=== PATIENT | female | born 1945 | race Caucasian/White ===

== ENCOUNTER 2021-02-02 17:24 | Emergency (ER) | payer MEDICARE, MEDICAID ==
[2021-02-02] MEDS ORDERED: Acetaminophen/Codeine 30-300mg Tablet ONE (18:14)
== END 2021-02-02 18:46 | disposition home or self-care (01) ==
LOC: BURERS 17:24
DX: L03.114 Cellulitis of left upper limb (principal); M19.90 Unspecified osteoarthritis, unspecified site; G20 Parkinson's disease; E03.9 Hypothyroidism, unspecified; E11.40 Type 2 diabetes mellitus with diabetic neuropathy, unspecified

== ENCOUNTER 2021-12-18 16:04 | Inpatient (IN) | payer MEDICARE, MEDICAID ==
[2021-12-18 17:19] LABS: ALT (SGPT) 55 U/L (8-55); AST (SGOT) 68 U/L (5-34); Albumin 3.8 g/dL (3.4-4.8); Alkaline Phosphatase 162 U/L (40-110); Anion Gap 15 mmol/L (10-20); BUN (Urea Nitrogen) 17 mg/dL (9.8-20.1); Bilirubin, Total 0.4 mg/dL (0.2-1.2); Calc. Creatinine Clearance 0 mL/min (70-130); Calcium 9.4 mg/dL (7.8-10.44); Carbon Dioxide 28 mmol/L (23-31); Chloride 100 mmol/L (98-107); Estimated GFR 69; Glucose 163 mg/dL (83-110); Potassium 4.1 mmol/L (3.5-5.1); Protein, Total 6.8 g/dL (5.8-8.1); Sodium 139 mmol/L (136-145)
[2021-12-18 17:22] LABS: #Basophils 0.1 thou/uL (0.0-0.2); #Eosinphils 0.2 thou/uL (0.0-0.7); #Monocytes 0.3 thou/uL (0.11-0.59); #Neutrophils 5.2 thou/uL (1.40-6.50); %Basophils 0.7 % (0.0-1.0); %Eosinophils 2.6 % (0.0-10.0); %Lymphocytes 26.1 % (21.0-51.0); %Monocytes 4.2 % (0.0-10.0); %Neutrophils 66.3 % (42.0-75.0); Hemoglobin 14.5 g/dL (12.0-16.0); Mean Corpuscular HGB CONC 31.9 g/dL (32.0-36.0); Mean Corpuscular Hemoglobin 27.1 pg (27.0-31.0); Mean Corpuscular Volume 84.8 fL (78.0-98.0); Mean Platelet Volume 7.8 fL (7.4-10.4); Platelet Count 221 thou/uL (130-400); RBC Distribution Width 15.5 % (11.5-14.5); Red Blood Cell (RBC) Count 5.34 mill/uL (4.20-5.40); White Blood Cell (WBC) Count 7.8 thou/uL (4.8-10.8)
[2021-12-18] MEDS ORDERED: Albuterol Sulfate 2.5 mg/0.5 ml Neb ONE ×2 (17:25→17:31)
[2021-12-18 18:16] LABS: Bilirubin Negative (Negative); Blood, Urine Negative (Negative); Clarity Clear (Clear); Glucose, Urine (Dipstick) Negative (Negative); Ketone, Urine Negative (Negative); Leukocyte Trace (Negative); Nitrite Negative (Negative); Protein, Urine (Dipstick) Negative (Neg-Trace); Urobilinogen 0.2 mg/dL (Less than 2); pH, Urine 6.5 (5.0-9.0)
[2021-12-18 18:25] LABS: Bacteria/HPF Rare-Few HPF (None Seen); RBC/HPF 0-3 HPF (0-3); Squamous Epithelial 0-3 HPF (0-3); WBC/HPF 0-3 HPF (0-3)
[2021-12-18 19:37] LABS: SARS-CoV-2 NAA Rapid Test DETECTED (NotDetected)
[2021-12-18 21:34] VITALS: BMI 43.4
[2021-12-18] MEDS ORDERED: Sodium Chloride 0.9% 1,000 ML IV SCH (22:30)
[2021-12-18] MEDS ORDERED: Ondansetron PF 4 MG/2 ML Vial IVP PRN (22:30)
[2021-12-18] MEDS ORDERED: Ondansetron ODT 4 MG TAB SL PRN (22:30)
[2021-12-18] MEDS ORDERED: Acetaminophen 325 MG TAB PO PRN (22:30)
[2021-12-19] MEDS ORDERED: Dextrose 5% in Water 1,000 ML IV PRN ×2 (08:55→19:30)
[2021-12-19] MEDS ORDERED: Dextrose 50% Abboject 50 ML SYRINGE SLOW IVP PRN ×2 (08:55→19:30)
[2021-12-19] MEDS ORDERED: CLONAZEPAM 1 MG PO SCH (09:00)
[2021-12-19] MEDS ORDERED: Carbidopa/Levodopa CR 50-200 mg Tablet PO SCH (09:00)
[2021-12-19] MEDS ORDERED: Non-Formulary Item 1 EACH (Buspirone Hcl [Buspar] 15 MG Tab) PO SCH (09:00)
[2021-12-19] MEDS: Lantus 1000 UNITS/10 ML VIAL SC SCH ×2 (10:00→21:55)
[2021-12-19] MEDS: HumaLOG 300 UNITS/3 ML VIAL SC SCH ×3 (10:01→22:02)
[2021-12-19] MEDS: lamoTRIgine 25 MG TAB PO SCH (10:03)
[2021-12-19] MEDS: Doxepin HCl 25 MG CAP PO SCH ×2 (10:04→10:11)
[2021-12-19] MEDS: Hydrochlorothiazide 25 MG TAB PO SCH (10:06)
[2021-12-19] MEDS: busPIRone HCl 5 MG TAB PO PRN ×2 (10:07→22:08)
[2021-12-19] MEDS ORDERED: Insulin Regular 300 UNITS/3 ML VIAL SC PRN (19:30)
[2021-12-19] MEDS: clonazePAM 0.5 MG TAB PO PRN (22:09)
[2021-12-20] MEDS: Doxepin HCl 25 MG CAP PO PRN ×2 (02:21→22:54)
[2021-12-20 05:42] LABS: Anion Gap 14 mmol/L (10-20); BUN (Urea Nitrogen) 10 mg/dL (9.8-20.1); Calc. Creatinine Clearance 117 mL/min (70-130); Calcium 8.9 mg/dL (7.8-10.44); Carbon Dioxide 31 mmol/L (23-31); Chloride 99 mmol/L (98-107); Estimated GFR 83; Glucose 126 mg/dL (83-110); Potassium 3.7 mmol/L (3.5-5.1); Sodium 140 mmol/L (136-145)
[2021-12-20 05:52] LABS: #Basophils 0.1 thou/uL (0.0-0.2); #Eosinphils 0.1 thou/uL (0.0-0.7); #Lymphocytes 1.1 thou/uL (1.20-3.40); #Monocytes 0.5 thou/uL (0.11-0.59); #Neutrophils 7.4 thou/uL (1.40-6.50); %Eosinophils 0.7 % (0.0-10.0); %Lymphocytes 11.9 % (21.0-51.0); %Monocytes 5.3 % (0.0-10.0); %Neutrophils 81.2 % (42.0-75.0); Hemoglobin 13.5 g/dL (12.0-16.0); Mean Corpuscular HGB CONC 32.2 g/dL (32.0-36.0); Mean Corpuscular Hemoglobin 27.5 pg (27.0-31.0); Mean Corpuscular Volume 85.4 fL (78.0-98.0); Mean Platelet Volume 8.1 fL (7.4-10.4); Platelet Count 187 thou/uL (130-400); RBC Distribution Width 15.4 % (11.5-14.5); White Blood Cell (WBC) Count 9.1 thou/uL (4.8-10.8)
[2021-12-20] MEDS: Levothyroxine Sodium 50 MCG TAB PO SCH (06:04)
[2021-12-20] MEDS: Linaclotide [Linzess] 145 MCG Capsule PO SCH (08:08)
[2021-12-20] MEDS: Lantus 1000 UNITS/10 ML VIAL SC SCH ×2 (08:11→21:25)
[2021-12-20] MEDS: lamoTRIgine 25 MG TAB PO SCH (08:12)
[2021-12-20] MEDS: HumaLOG 300 UNITS/3 ML VIAL SC SCH ×3 (08:12→21:24)
[2021-12-20] MEDS: HumaLOG 300 UNITS/3 ML VIAL SC PRN ×2 (08:12→17:51)
[2021-12-20] MEDS: busPIRone HCl 5 MG TAB PO PRN ×2 (08:13→21:25)
[2021-12-20] MEDS: Potassium Chloride 10 MEQ TAB PO SCH (08:13)
[2021-12-20] MEDS: Carbidopa/Levodopa 25-100 mg Tablet PO SCH (08:13)
[2021-12-20] MEDS: Hydrochlorothiazide 25 MG TAB PO SCH (08:14)
[2021-12-20] MEDS: Albuterol 200 PUFF (6.7GM INHALER) INH PRN ×2 (08:17→14:33)
[2021-12-20] MEDS: clonazePAM 0.5 MG TAB PO PRN ×2 (10:30→22:55)
[2021-12-20] MEDS: Cefdinir 300 MG CAP PO SCH ×2 (10:30→21:23)
[2021-12-20] MEDS ORDERED: VILAZODONE HCL 40 MG TAB PO SCH (13:45)
[2021-12-20] MEDS: Polyethylene Glycol 3350 17 GM Packet PO PRN (14:39)
[2021-12-21] MEDS: Levothyroxine Sodium 50 MCG TAB PO SCH (05:55)
[2021-12-21] MEDS: Linaclotide [Linzess] 145 MCG Capsule PO SCH (07:58)
[2021-12-21] MEDS ORDERED: predniSONE 20 MG TAB PO SCH (08:00)
[2021-12-21] MEDS: Lantus 1000 UNITS/10 ML VIAL SC SCH (08:36)
[2021-12-21] MEDS: HumaLOG 300 UNITS/3 ML VIAL SC SCH ×2 (08:36→14:44)
[2021-12-21] MEDS: Cefdinir 300 MG CAP PO SCH (08:38)
[2021-12-21] MEDS: busPIRone HCl 5 MG TAB PO PRN (08:39)
[2021-12-21] MEDS: lamoTRIgine 25 MG TAB PO SCH (08:39)
[2021-12-21] MEDS: clonazePAM 0.5 MG TAB PO PRN (08:39)
[2021-12-21] MEDS: Carbidopa/Levodopa 25-100 mg Tablet PO SCH (08:40)
[2021-12-21] MEDS: Potassium Chloride 10 MEQ TAB PO SCH (08:40)
[2021-12-21] MEDS: Hydrochlorothiazide 25 MG TAB PO SCH (08:40)
[2021-12-21] MEDS: Polyethylene Glycol 3350 17 GM Packet PO PRN (08:40)
[2021-12-21] MEDS: Albuterol 200 PUFF (6.7GM INHALER) INH PRN (08:42)
[2021-12-21] MEDS ORDERED: VILAZODONE HCL 40 MG TAB PO SCH (09:00)
[2021-12-21 12:21] VITALS: BP 145/64; TEMP 96.2
[2021-12-21] MEDS: HumaLOG 300 UNITS/3 ML VIAL SC PRN (12:21)
== END 2021-12-21 16:26 | disposition swing bed (61) | DRG 177 ==
LOC: BURERS 16:04 → BURMED 21:08
PROVIDERS: ADMIT Family Medicine; ATTEND Family Medicine
PROC: 8E0ZXY6 Isolation (ICD-10-PCS; principal; 2021-12-18)
DX: U07.1 COVID-19 (principal); J96.21 Acute and chronic respiratory failure with hypoxia; J20.9 Acute bronchitis, unspecified; F32.A Depression, unspecified; E03.9 Hypothyroidism, unspecified; E11.42 Type 2 diabetes mellitus with diabetic polyneuropathy; F41.9 Anxiety disorder, unspecified; G20 Parkinson's disease; U09.9 Post COVID-19 condition, unspecified; Z88.8 Allergy status to other drugs, medicaments and biological substances; Z88.5 Allergy status to narcotic agent; Z88.0 Allergy status to penicillin; Z79.899 Other long term (current) drug therapy; Z79.4 Long term (current) use of insulin; Z79.890 Hormone replacement therapy; Z90.49 Acquired absence of other specified parts of digestive tract; Z90.89 Acquired absence of other organs
CPT/HCPCS: 36415; 36416; 71045; 80048; 80053; 81003; 81015; 83036; 83605; 83880; 84484; 85025; 87040; 87086; 94640; 94760; J1815; J7050; J7512; J7611; J7620; U0002

== ENCOUNTER 2021-12-21 16:26 | Inpatient (IN) | payer MEDICARE, OTHER ==
[2021-12-21] MEDS ORDERED: Dextrose 50% Abboject 50 ML SYRINGE SLOW IVP PRN (19:03)
[2021-12-21] MEDS ORDERED: Dextrose 5% in Water 1,000 ML IV PRN (19:03)
[2021-12-21] MEDS ORDERED: Senokot S 8.6-50 MG TAB PO PRN (19:04)
[2021-12-21] MEDS: clonazePAM 0.5 MG TAB PO PRN (21:13)
[2021-12-21] MEDS: Doxepin HCl 25 MG CAP PO SCH (21:14)
[2021-12-21] MEDS: Cefdinir 300 MG CAP PO SCH (21:14)
[2021-12-21] MEDS: Lantus 1000 UNITS/10 ML VIAL SC SCH (21:15)
[2021-12-21] MEDS: busPIRone HCl 5 MG TAB PO SCH (21:15)
[2021-12-22] MEDS: Levothyroxine Sodium 50 MCG TAB PO SCH (05:15)
[2021-12-22] MEDS ORDERED: Loperamide HCl 2 MG CAP PO PRN ×2 (08:07→08:08)
[2021-12-22] MEDS ORDERED: Bisacodyl 5 MG TAB PO PRN (08:07)
[2021-12-22] MEDS ORDERED: Bisacodyl 10 MG SUPP PR PRN (08:07)
[2021-12-22] MEDS ORDERED: Zolpidem Tartrate 5 MG TAB PO PRN (08:08)
[2021-12-22] MEDS ORDERED: Acetaminophen 650 MG Suppository PR PRN (08:09)
[2021-12-22] MEDS ORDERED: Ondansetron ODT 4 MG TAB PO PRN (08:10)
[2021-12-22] MEDS ORDERED: Ondansetron PF 4 MG/2 ML Vial IVP PRN (08:10)
[2021-12-22] MEDS: Lantus 1000 UNITS/10 ML VIAL SC SCH ×2 (08:52→21:43)
[2021-12-22] MEDS: Acetaminophen 325 MG TAB PO PRN ×2 (08:54→13:33)
[2021-12-22] MEDS: VILAZODONE HCL 40 MG PO SCH (08:54)
[2021-12-22] MEDS: Potassium Chloride 10 MEQ TAB PO SCH (08:54)
[2021-12-22] MEDS: busPIRone HCl 5 MG TAB PO SCH ×2 (08:55→21:44)
[2021-12-22] MEDS: predniSONE 20 MG TAB PO SCH (08:55)
[2021-12-22] MEDS: Hydrochlorothiazide 25 MG TAB PO SCH (08:55)
[2021-12-22] MEDS: Carbidopa/Levodopa CR 50-200 mg Tablet PO SCH (08:56)
[2021-12-22] MEDS: Cefdinir 300 MG CAP PO SCH ×2 (08:57→21:44)
[2021-12-22] MEDS: lamoTRIgine 25 MG TAB PO SCH (08:57)
[2021-12-22] MEDS: Polyethylene Glycol 3350 17 GM Packet PO PRN (09:03)
[2021-12-22] MEDS: Insulin Regular 300 UNITS/3 ML VIAL SC PRN (18:50)
[2021-12-22] MEDS: clonazePAM 0.5 MG TAB PO PRN (21:45)
[2021-12-22] MEDS: Doxepin HCl 25 MG CAP PO SCH (21:45)
[2021-12-23] MEDS: Levothyroxine Sodium 50 MCG TAB PO SCH (05:41)
[2021-12-23] MEDS: predniSONE 20 MG TAB PO SCH (10:03)
[2021-12-23] MEDS: lamoTRIgine 25 MG TAB PO SCH (10:04)
[2021-12-23] MEDS: busPIRone HCl 5 MG TAB PO SCH ×2 (10:04→22:01)
[2021-12-23] MEDS: Cefdinir 300 MG CAP PO SCH ×2 (10:05→22:02)
[2021-12-23] MEDS: VILAZODONE HCL 40 MG PO SCH (10:06)
[2021-12-23] MEDS: Potassium Chloride 10 MEQ TAB PO SCH (10:06)
[2021-12-23] MEDS: Polyethylene Glycol 3350 17 GM Packet PO PRN (10:10)
[2021-12-23] MEDS: Hydrochlorothiazide 25 MG TAB PO SCH (10:24)
[2021-12-23] MEDS: Carbidopa/Levodopa CR 50-200 mg Tablet PO SCH (10:25)
[2021-12-23] MEDS: Lantus 1000 UNITS/10 ML VIAL SC SCH ×2 (10:25→22:04)
[2021-12-23 11:16] VITALS: BMI 43.4
[2021-12-23] MEDS: Acetaminophen 325 MG TAB PO PRN (13:57)
[2021-12-23] MEDS: Insulin Regular 300 UNITS/3 ML VIAL SC PRN ×2 (14:00→22:03)
[2021-12-23] MEDS: Doxepin HCl 25 MG CAP PO SCH (22:01)
[2021-12-23] MEDS: clonazePAM 0.5 MG TAB PO PRN (22:02)
[2021-12-24] MEDS: Acetaminophen 325 MG TAB PO PRN ×3 (00:33→23:31)
[2021-12-24] MEDS: Levothyroxine Sodium 50 MCG TAB PO SCH (05:41)
[2021-12-24] MEDS: VILAZODONE HCL 40 MG PO SCH (09:08)
[2021-12-24] MEDS: lamoTRIgine 25 MG TAB PO SCH (09:09)
[2021-12-24] MEDS: Potassium Chloride 10 MEQ TAB PO SCH (09:09)
[2021-12-24] MEDS: Carbidopa/Levodopa CR 50-200 mg Tablet PO SCH (09:10)
[2021-12-24] MEDS: Cefdinir 300 MG CAP PO SCH ×2 (09:12→20:54)
[2021-12-24] MEDS: busPIRone HCl 5 MG TAB PO SCH ×2 (09:12→20:54)
[2021-12-24] MEDS: Hydrochlorothiazide 25 MG TAB PO SCH (09:13)
[2021-12-24] MEDS: Lantus 1000 UNITS/10 ML VIAL SC SCH ×2 (09:16→20:53)
[2021-12-24] MEDS: clonazePAM 0.5 MG TAB PO PRN (12:13)
[2021-12-24] MEDS ORDERED: XIIDRA 5% EA EYE PRN (13:57)
[2021-12-24 17:21] VITALS: TEMP 98.1
[2021-12-24] MEDS: Doxepin HCl 25 MG CAP PO SCH (20:54)
[2021-12-25] MEDS: Levothyroxine Sodium 50 MCG TAB PO SCH (05:46)
[2021-12-25 06:02] VITALS: BP 145/81
[2021-12-25] MEDS: lamoTRIgine 25 MG TAB PO SCH (10:20)
[2021-12-25] MEDS: busPIRone HCl 5 MG TAB PO SCH (10:21)
[2021-12-25] MEDS: Carbidopa/Levodopa CR 50-200 mg Tablet PO SCH (10:22)
[2021-12-25] MEDS: Hydrochlorothiazide 25 MG TAB PO SCH (10:23)
[2021-12-25] MEDS: Cefdinir 300 MG CAP PO SCH (10:23)
[2021-12-25] MEDS: Potassium Chloride 10 MEQ TAB PO SCH (10:23)
[2021-12-25] MEDS: Lantus 1000 UNITS/10 ML VIAL SC SCH (10:24)
[2021-12-25] MEDS: VILAZODONE HCL 40 MG PO SCH (10:39)
== END 2021-12-25 12:51 | disposition home health service (06) | DRG 179 ==
LOC: BURMED 16:26
PROVIDERS: ADMIT Family Medicine; ATTEND Family Medicine
PROC: 8E0ZXY6 Isolation (ICD-10-PCS; principal; 2021-12-21)
DX: U07.1 COVID-19 (principal); J20.8 Acute bronchitis due to other specified organisms; R09.02 Hypoxemia; G20 Parkinson's disease; F39 Unspecified mood [affective] disorder; E11.65 Type 2 diabetes mellitus with hyperglycemia; F32.A Depression, unspecified; E03.9 Hypothyroidism, unspecified; E11.40 Type 2 diabetes mellitus with diabetic neuropathy, unspecified; Z98.890 Other specified postprocedural states; Z90.49 Acquired absence of other specified parts of digestive tract; Z79.899 Other long term (current) drug therapy; Z79.890 Hormone replacement therapy; Z88.8 Allergy status to other drugs, medicaments and biological substances; Z88.0 Allergy status to penicillin; Z88.6 Allergy status to analgesic agent
CPT/HCPCS: 36416; J1815; J7512

== ENCOUNTER 2024-04-05 14:26 | Emergency (ER) | payer MEDICARE, OTHER ==
[2024-04-05 15:36] LABS: #Basophils 0.1 thou/uL (0.0-0.2); #Eosinophils 0.1 thou/uL (0.0-0.7); #Lymphocytes 1.5 thou/uL (1.20-3.40); #Monocytes 0.5 thou/uL (0.11-0.59); #Neutrophils 5.2 thou/uL (1.40-6.50); %Eosinophils 0.7 % (0.0-10.0); %Lymphocytes 20.3 % (21.0-51.0); %Monocytes 7.1 % (0.0-10.0); Hematocrit 39.5 % (36.0-47.0); Hemoglobin 12.5 g/dL (12.0-16.0); Mean Corpuscular HGB CONC 31.7 g/dL (32.0-36.0); Mean Corpuscular Hemoglobin 26.6 pg (27.0-31.0); Mean Corpuscular Volume 83.9 fl (78.0-98.0); Mean Platelet Volume 8.9 fL (7.4-10.4); Platelet Count 184 10x3/uL (130-400); RBC Distribution Width 15.2 % (11.5-14.5); Red Blood Cell (RBC) Count 4.71 mill/uL (4.20-5.40); White Blood Cell (WBC) Count 7.4 10x3/uL (4.8-10.8)
[2024-04-05 15:43] LABS: Prothrombin Time 13.4 sec (12.0-14.7)
[2024-04-05 15:52] LABS: ALT (SGPT) 27 U/L (8-55); AST (SGOT) 39 U/L (5-34); Albumin 3.5 g/dL (3.4-4.8); Alkaline Phosphatase 103 U/L (40-110); Anion Gap 15 mmol/L (10-20); BUN (Urea Nitrogen) 15 mg/dL (9.8-20.1); Bilirubin, Total 0.4 mg/dL (0.2-1.2); Calc. Creatinine Clearance 0 mL/min (70-130); Calcium 9.7 mg/dL (7.8-10.44); Carbon Dioxide 26 mmol/L (23-31); Chloride 106 mmol/L (98-107); Estimated GFR 65; Globulin 2.6 g/dL (2.4-3.5); Glucose 135 mg/dL (83-110); Potassium 3.8 mmol/L (3.5-5.1); Protein, Total 6.1 g/dL (5.8-8.1); Sodium 143 mmol/L (136-145)
== END 2024-04-05 17:42 | disposition home or self-care (01) ==
LOC: BURERS 14:26
DX: S09.90XA Unspecified injury of head, initial encounter (principal); E03.9 Hypothyroidism, unspecified; E11.9 Type 2 diabetes mellitus without complications; Z79.4 Long term (current) use of insulin; Z79.890 Hormone replacement therapy; Z79.899 Other long term (current) drug therapy; W19.XXXA Unspecified fall, initial encounter; R07.9 Chest pain, unspecified
CPT/HCPCS: 36415; 70450; 71045; 72125; 80053; 85025; 85610